=== PATIENT | female | born 1960 ===

== ENCOUNTER 2018-01-21 09:38 | Emergency (ER) | payer OTHER ==
--- NOTE | 2018-01-21 10:20 | C.PDOC ---
History Of Present Illness Patient c/o headache associated with elevated BP started from last night. Patient also c/p numbing sensation in the left 5th finger started this morning after sleep. Patient sts she recently had left wrist fracture. Patient denies chest pain/SOB/ Dizziness/nausea/vomiting/blurred vision. Patient is currently taking HCTZ 25 mg po QD for HTN. Time Seen by Provider: 01/21/18 09:55 Chief Complaint (Nursing): High Blood Pressure History Per: Patient History/Exam Limitations: no limitations Onset/Duration Of Symptoms: Other (from last night) Current Symptoms Are (Timing): Better Associated Symptoms: Headache Severity: Moderate Exacerbating Factor(s): Pos: None Past Medical History Reviewed: Historical Data, Nursing Documentation, Vital Signs Vital Signs: Last Vital Signs Temp 97.7 F 01/21/18 13:50 Pulse 80 01/21/18 13:50 Resp 20 01/21/18 13:50 BP 146/87 01/21/18 13:50 Pulse Ox 100 01/21/18 14:11 - Medical History PMH: Asthma, HTN Family History: States: Unknown Family Hx - Social History Hx Alcohol Use: No Hx Substance Use: No - Immunization History Hx Tetanus Toxoid Vaccination: No Hx Influenza Vaccination: No Hx Pneumococcal Vaccination: No Review Of Systems Except As Marked, All Systems Reviewed And Found Negative. Physical Exam - Physical Exam Appears: Well, Non-toxic, No Acute Distress Skin: Normal Color, Warm, Dry Head: Atraumatic, Normacephalic Eye(s): bilateral: Normal Inspection, PERRL, EOMI Neck: Normal ROM, No Midline Cervical Tenderness, No Paracervical Tenderness, Supple Chest: Symmetrical, No Tenderness Cardiovascular: Rhythm Regular, No Edema Respiratory: Normal Breath Sounds Gastrointestinal/Abdominal: Soft, No Tenderness Back: No Vertebral Tenderness, No Paraspinal Tenderness Extremity: Tenderness (mild tenderness of the left wrist, FROM in all fingers, no neuro-vascular deficit.), No Swelling Pulses: Left Radial: Normal Neurological/Psych: Oriented x3, Normal Speech, Normal Cognition, Normal Cranial Nerves, Normal Motor, Normal Sensation ED Course And Treatment - Laboratory Results Result Diagrams: 01/21/18 10:57 01/21/18 10:57 ECG Rhythm: Sinus Rhythm ECG Interpretation: No Acute Changes Interpretation Of ECG: Q in V2 Rate From EC O2 Sat by Pulse Oximetry: 100 - CT Scan/US Head CT Other Rad Studies (CT/US): Read By Radiologist, Radiology Report Reviewed CT/US Interpretation: Accession No. : [id number]. Patient Name / ID : ANKUSH POLK / [id number]. Exam Date : 01/21/2018 11:19:35 ( Approved ). Study Comment : Sex / Age : F / 58Y. Creator : Heriberto Rodriguez MD. Dictator : Heriberto Rodriguez MD. Carpet Inspector Finished : White Work Cleaner : Heriberto Rodriguez MD. Approver2 : Report Date : 01/21/2018 12:24:21. PROCEDURE : CT HEAD WITHOUT CONTRAST. HISTORY: headache, elevated BP. COMPARISON: None available. TECHNIQUE: Axial computed tomography images were obtained through the head/brain without intravenous contrast. Radiation dose: Total exam DLP = 809.91 mGy-cm. This CT exam was performed using one or more of the following dose reduction techniques: Automated exposure control, adjustment of the mA and/or kV according to patient size, and/or use of iterative reconstruction technique. FINDINGS: HEMORRHAGE: No intracranial hemorrhage. BRAIN: No mass effect or edema. No atrophy or chronic microvascular ischemic changes. VENTRICLES: Unremarkable. No hydrocephalus. CALVARIUM: Unremarkable. PARANASAL SINUSES: Unremarkable as visualized. No significant inflammatory changes. MASTOID AIR CELLS: Unremarkable as visualized. No inflammatory changes. OTHER FINDINGS: None. IMPRESSION: Normal CT of the Head. Progress Note: Plan: EKG, labs, CT head, Vasotec 2.5 mg IV. On re-evaluation patient feels better, BP went down, patient is pain free. No neuro deficit. patient is stable to be d/c home with PMD follow up. Disposition - Disposition Referrals: [facility] at [facility] [Outside] Disposition: HOME/ ROUTINE Disposition Time: 14:07 Condition: IMPROVED Additional Instructions: Follow up in Clinic within 1-2 days. Return to ED if feel worse. Prescriptions: Lisinopril [Zestril] 10 mg PO DAILY #30 tablet Instructions: High Blood Pressure (DC), Headache, Adult (DC) Forms: [employer] (Vietnamese) Print Language: MOHAWK - Clinical Impression Clinical Impression: Hypertension, Headache
[2018-01-21] MEDS ORDERED: Enalaprilat 2.5 MG/2 ML IV STA (10:44)
[2018-01-21] MEDS ORDERED: Enalaprilat 2.5 MG/2 ML ONE (10:50)
[2018-01-21 11:01] LABS: BASO % 0.8 % (0.0-2.0); EOS # 0.2 K/uL (0.0-0.7); EOS % 4.3 % (0.0-4.0); HEMOGLOBIN 12.6 g/dL (11.0-16.0); LYMPH # 1.8 K/uL (1.0-4.3); LYMPH % 41.4 % (20.0-40.0); MEAN CELL VOLUME 91.7 fL (81.0-99.0); MEAN CORPUSCULAR HEMOGLOBIN 30.4 pg (27.0-31.0); MEAN CORPUSCULAR HGB CONC 33.2 g/dL (33.0-37.0); MONO # 0.4 K/uL (0.0-0.8); MONO % 8.3 % (0.0-10.0); NEUT % 45.2 % (50.0-75.0); RBC 4.13 Mil/uL (3.80-5.20); WHITE BLOOD COUNT 4.4 K/uL (4.8-10.8)
[2018-01-21 11:13] LABS: SQUAMOUS EPITHIAL < 1 /hpf (0-5); URINE BILIRUBIN NEGATIVE (NEGATIVE); URINE BLOOD NEGATIVE (NEGATIVE); URINE CLARITY Clear (Clear); URINE COLOR Yellow (YELLOW); URINE GLUCOSE (UA) NORMAL (Normal); URINE LEUKOCYTE ESTERASE NEG Leu/uL (Negative); URINE PROTEIN NEGATIVE (NEGATIVE); URINE UROBILINOGEN NORMAL mg/dL (0.2-1.0)
[2018-01-21 11:26] LABS: ALB/GLOB RATIO 1.2 (1.0-2.1); ALBUMIN 4.4 g/dL (3.5-5.0); ALT/SGPT 28 U/L (9-52); AST/SGOT 27 U/L (14-36); BLOOD UREA NITROGEN 16 mg/dL (7-17); GFR AFRICAN-AMERICAN > 60; GFR NON-AFRICAN AMERICAN > 60
--- NOTE | 2018-01-21 12:25 | CT ---
PROCEDURE: CT HEAD WITHOUT CONTRAST. HISTORY: headache, elevated BP COMPARISON: None available. TECHNIQUE: Axial computed tomography images were obtained through the head/brain without intravenous contrast. Radiation dose: Total exam DLP = 809.91 mGy-cm. This CT exam was performed using one or more of the following dose reduction techniques: Automated exposure control, adjustment of the mA and/or kV according to patient size, and/or use of iterative reconstruction technique. FINDINGS: HEMORRHAGE: No intracranial hemorrhage. BRAIN: No mass effect or edema. No atrophy or chronic microvascular ischemic changes. VENTRICLES: Unremarkable. No hydrocephalus. CALVARIUM: Unremarkable. PARANASAL SINUSES: Unremarkable as visualized. No significant inflammatory changes. MASTOID AIR CELLS: Unremarkable as visualized. No inflammatory changes. OTHER FINDINGS: None. IMPRESSION: Normal CT of the Head.
[2018-01-21 13:51] VITALS: BP 146/87; PULSE 80; RESP 20; TEMP 97.7
[2018-01-21 14:10] VITALS: O2SAT 100
--- NOTE | 2018-01-22 12:08 | CARD ---
APPROVED REPORT EKG Measurement Heart [id number] <Conclusion> Normal sinus rhythm Septal infarct, age undetermined Abnormal ECG
== END 2018-01-21 14:52 | disposition home or self-care (01) ==
LOC: C.ER 09:38
DX: I10 Essential (primary) hypertension (principal); R51 Headache

== ENCOUNTER 2018-03-17 12:10 | Emergency (ER) | payer OTHER ==
[2018-03-17 12:25] VITALS: BMI 23.3
[2018-03-17 12:29] VITALS: BP 161/76; PULSE 86; RESP 20; TEMP 98.4; O2SAT 99
--- NOTE | 2018-03-17 12:52 | C.PDOC ---
History Of Present Illness 58 year old female presents to the ED requesting blood pressure med refill. She states she has not taken her medications for 2 days. She reports she has not been able to go to the pharmacy to get a refill because every time she comes back from work the pharmacy is closed. Patient denies any medical complaints. Denies headache, dizziness, chest pain, or sob. Time Seen by Provider: 03/17/18 12:32 Chief Complaint (Nursing): Medical Clearance History Per: Patient History/Exam Limitations: no limitations Past Medical History Reviewed: Historical Data, Nursing Documentation, Vital Signs Vital Signs: Last Vital Signs Temp 98.4 F 03/17/18 12:24 Pulse 86 03/17/18 12:24 Resp 20 03/17/18 12:24 BP 161/76 H 03/17/18 12:24 Pulse Ox 99 03/17/18 15:17 - Medical History PMH: Asthma, HTN Surgical History: No Surg Hx Family History: States: No Known Family Hx - Social History Hx Alcohol Use: No Hx Substance Use: No - Immunization History Hx Tetanus Toxoid Vaccination: No Hx Influenza Vaccination: No Hx Pneumococcal Vaccination: No Review Of Systems Except As Marked, All Systems Reviewed And Found Negative. Physical Exam - Physical Exam Appears: Non-toxic, No Acute Distress Skin: Normal Color, Warm, Dry Head: Atraumatic, Normacephalic Eye(s): bilateral: Normal Inspection, PERRL, EOMI Nose: Normal Oral Mucosa: Moist Neck: Normal ROM, Supple Chest: Symmetrical Cardiovascular: Rhythm Regular Respiratory: Normal Breath Sounds, No Accessory Muscle Use, No Rales, No Rhonchi , No Wheezing Extremity: Normal ROM Neurological/Psych: Oriented x3, Normal Speech Gait: Steady ED Course And Treatment O2 Sat by Pulse Oximetry: 99 (RA) Pulse Ox Interpretation: Normal Progress Note: Patients condition remained stable throughout Emergency Department evaluation. Previous medical records were requested and reviewed. Patient given Rx for Microzide and Zestril. Patient instructed to follow up with clinic . Clay Puddler used to ensure understanding. Disposition - Disposition Referrals: [facility] at [facility] [Outside] Disposition: HOME/ ROUTINE Disposition Time: 12:51 Condition: STABLE Additional Instructions: Vaya a vaz mdico o la clnica en 2-5 briones sin falta, para mas evaluacin. [place] los medicamentos froylan indicado. Volver a la snow de emergencia en cualquier momento si los sntomas persisten o empeoran. Prescriptions: Hydrochlorothiazide [Microzide] 12.5 mg PO DAILY #30 cap Lisinopril [Zestril] 10 mg PO DAILY #30 tablet Instructions: High Blood Pressure (DC) Forms: [employer] (Lithuanian) Print Language: MALDIVIAN - Clinical Impression Clinical Impression: Hypertension - PA / FORMS ANALYSIS MANAGER / Resident Statement MD/DO has reviewed & agrees with the documentation as recorded. - Scribe Statement The provider has reviewed the documentation as recorded by the Scribe Kristen Frederick All medical record entries made by the Selvinibtravis were at my direction and personally dictated by me. I have reviewed the chart and agree that the record accurately reflects my personal performance of the history, physical exam, medical decision making, and the department course for this patient. I have also personally directed, reviewed, and agree with the discharge instructions and disposition.
== END 2018-03-17 13:15 | disposition home or self-care (01) ==
LOC: C.ER 12:10
DX: I10 Essential (primary) hypertension (principal)

== ENCOUNTER 2018-03-24 15:57 | Emergency (ER) | payer OTHER ==
[2018-03-24 16:02] VITALS: BMI 22.6
[2018-03-24 16:04] VITALS: TEMP 98.8
--- NOTE | 2018-03-24 16:24 | C.PDOC ---
History Of Present Illness <Megan Landeros - Last Filed: 03/24/18 18:18> <Mary Corley - Last Filed: 03/24/18 20:12> 58 year old female presents to ED for evaluation of epigastric abdominal pain that started today, described as constant and localized. +nausea. No fever, diarrhea, chest pain, shortness of breath. PSH neg. Pt was seen on 03/17 sp HTN refill Hydrochlorothiazide 12.5mg PO daily. EPIG ABD PAIN X 1 DAY. CONSTANT LOCALIZED +NAUSE NO FEVER, DIARRHEA. PSH NEG. NO CP, SOB. SEEN 03/17 SP HTN MED REFILL Hydrochlorothiazide [Microzide] 12.5 mg PO DAILY #30 cap Lisinopril [Zestril] 10 mg PO DAILY #30 tablet EXAM MILD DIST NONTOXIC HEENT ANICTERIC MMM ABD +EPIG TEND MILD SOFT NO R/G REMAINDER NEG (Megan Landeros) History Per: Patient History/Exam Limitations: no limitations Onset/Duration Of Symptoms: Hrs Current Symptoms Are (Timing): Still Present Location Of Pain/Discomfort: Epigastric Radiation Of Pain To:: None Quality Of Discomfort: "Pain" Associated Symptoms: Nausea. denies: Fever, Vomiting, Diarrhea Recent travel outside of the [place]: No Additional History Per: Patient <Megan Landeros - Last Filed: 03/24/18 18:18> <Mary Corley - Last Filed: 03/24/18 20:12> Time Seen by Provider: 03/24/18 16:19 Chief Complaint (Nursing): Abdominal Pain Past Medical History Reviewed: Historical Data, Nursing Documentation, Vital Signs - Medical History PMH: Asthma, HTN Family History: States: Unknown Family Hx - Social History Hx Alcohol Use: No Hx Substance Use: No - Immunization History Hx Tetanus Toxoid Vaccination: No Hx Influenza Vaccination: No Hx Pneumococcal Vaccination: No <Megan Landeros - Last Filed: 03/24/18 18:18> Vital Signs: Last Vital Signs Temp 98.8 F 03/24/18 16:02 Pulse 67 03/24/18 18:50 Resp 18 03/24/18 18:50 BP 122/67 03/24/18 18:50 Pulse Ox 98 03/24/18 18:50 Review Of Systems Except As Marked, All Systems Reviewed And Found Negative. Constitutional: Negative for: Fever, Chills Cardiovascular: Negative for: Chest Pain Respiratory: Negative for: Shortness of Breath Gastrointestinal: Positive for: Nausea, Abdominal Pain. Negative for: Vomiting , Diarrhea Genitourinary: Negative for: Dysuria, Hematuria Musculoskeletal: Negative for: Back Pain <Megan Landeros - Last Filed: 03/24/18 18:18> Physical Exam - Physical Exam Appears: Non-toxic, Other (In mild distress) Skin: Normal Color, Warm, Dry Head: Atraumatic, Normacephalic Eye(s): bilateral: Normal Inspection, Other (anicteric) Nose: Normal Oral Mucosa: Moist Neck: Normal ROM, Supple Cardiovascular: Rhythm Regular, No Murmur Respiratory: Normal Breath Sounds, No Rales, No Rhonchi, No Wheezing Gastrointestinal/Abdominal: Soft, Tenderness (mild epigastric), No Guarding, No Rebound Back: No CVA Tenderness Extremity: Normal ROM Neurological/Psych: Oriented x3, Normal Speech <Megan Landeros Last Filed: 03/24/18 18:18> ED Course And Treatment - Laboratory Results Result Diagrams: 03/24/18 16:58 03/24/18 16:58 ECG: Interpreted By Ms, Viewed By Ms ECG Rhythm: Sinus Rhythm ECG Interpretation: No Acute Changes Rate From EC (bpm) O2 Sat by Pulse Oximetry: 100 (RA) Pulse Ox Interpretation: Normal - Radiology CXR: Interpreted by Ms CXR Interpretation: Yes: No Acute Disease <Megan Landeros - Last Filed: 03/24/18 18:18> - Laboratory Results Result Diagrams: 03/24/18 16:58 03/24/18 16:58 Lab Interpretation: No Acute Changes - CT Scan/US US Abd Other Rad Studies (CT/US): Read By Radiologist, Radiology Report Reviewed CT/US Interpretation: Name: JAM DE LUNA Age: 58Years F Date: . Requesting Physician: Megan Landeros : 1960. [employer] Procedure Ordered As Accession Number of Images. US ABDOMEN LTD US ABDOMEN LIMITED [id number]. Provided Clinical History: abd pain. EXAM: US Abdomen Limited, Right Upper Quadrant. CLINICAL HISTORY: 58 years old, female ; Pain; Abdominal pain; Generalized; Additional info: Abd pain. TECHNIQUE: Real-time ultrasound of the right upper quadrant with image documentation. COMPARISON: No relevant prior studies available. FINDINGS: Liver: Unremarkable. No mass. No intrahepatic bile duct dilation. Gallbladder: There is a non-mobile echogenic focus seen in the dependent surface of the gallbladder. without significant shadowing. this finding likely represents a gallbladder polyp. This finding measures 4 mm x 2 mm x 2.7 mm No. gallstones. Common bile duct: Unremarkable as visualized. No stones. No dilation. 2.4 mm. Pancreas: There is dilatation of pancreatic duct measuring 2.3 mm. Right kidney : Unremarkable. No stones. No solid mass. No hydronephrosis. RIGHT kidney measures 9.4 cm x 4.7 cm 4.7 cm. The abdominal aorta and IVC are unremarkable. IMPRESSION: 1. Small echogenic focus within the gallbladder possible polyp. 2. Pancreatic ductal dilatation. 3. Negative RIGHT kidney. 4.. Negative exam of the liver. Thank you for allowing us to participate in the care of your patient. Dictated and Authenticated by: Joon Mensah MD. 03/24/2018 7:55 PM Eastern Time ([place] & [place]) Reevaluation Time: 20:03 Reassessment Condition: Improved (but still having mild epigastric discomfort. Patient states that she took medication she has hat home for similar pain earlier this month and felt better.) <Mary Corley - Last Filed: 03/24/18 20:12> Progress - Data Reviewed Data Reviewed: Lab, Diagnostic imaging, EKG, Old records <Megan Landeros - Last Filed: 03/24/18 18:18> <Mary Corley - Last Filed: 03/24/18 20:12> - Re-Evaluation Re-evaluation Note: 03/24/18 18:16 CO RECUR ABD PAIN. PENDING US 03/24/18 18:[address] CORLEY FU US, REPORT, DISPO (Megan Landeros) Medical Decision Making <Megan Landeros - Last Filed: 03/24/18 18:18> <Mary Corley - Last Filed: 03/24/18 20:12> Medical Decision Making: Plan: Blood work Urinalysis CXR EKG Abdomen US Morphine, Pepcid, Zofran Reassess (Megan Landeros) Disposition Counseled Patient/Family Regarding: Studies Performed - Disposition Disposition Time: 18:18 <Megan Landeros - Last Filed: 03/24/18 18:18> - Disposition Disposition Time: 20:10 <Mary Corley - Last Filed: 03/24/18 20:12> - Disposition Referrals: [facility] at [facility] [Outside] Disposition: HOME/ ROUTINE Condition: STABLE Prescriptions: Dicyclomine [Bentyl] 20 mg PO QID PRN #20 tab PRN Reason: Pain, Severe (8-10) Instructions: Acute Abdomen (Belly Pain) Forms: [employer] (Chadian) Print Language: UPPER SORBIAN - Clinical Impression Clinical Impression: Abdominal pain - Scribe Statement The provider has reviewed the documentation as recorded by the Scribe <Megan Landeros - Last Filed: 03/24/18 18:18> <Mary Corley - Last Filed: 03/24/18 20:12> - Scribe Statement KP All medical record entries made by the Scribe were at my direction and personally dictated by me. I have reviewed the chart and agree that the record accurately reflects my personal performance of the history, physical exam, medical decision making, and the department course for this patient. I have also personally directed, reviewed, and agree with the discharge instructions and disposition. (Megan Landeros) Physician Patient Turnover Patient Signed Over To: Mary Corley Handoff Comments: JOHNNY LENZ, DISPO <Megan Landeros - Last Filed: 03/24/18 18:18>
[2018-03-24] MEDS ORDERED: Morphine 4 MG/ML VIAL ONE ×2 (16:48→18:21)
[2018-03-24 17:03] LABS: BASO % 0.7 % (0.0-2.0); EOS # 0.2 K/uL (0.0-0.7); EOS % 2.8 % (0.0-4.0); HEMOGLOBIN 11.7 g/dL (11.0-16.0); LYMPH # 2.8 K/uL (1.0-4.3); LYMPH % 39.9 % (20.0-40.0); MEAN CELL VOLUME 90.3 fL (81.0-99.0); MEAN CORPUSCULAR HEMOGLOBIN 29.1 pg (27.0-31.0); MEAN CORPUSCULAR HGB CONC 32.2 g/dL (33.0-37.0); MEAN PLATELET VOLUME 9.2 fL (7.2-11.7); MONO # 0.5 K/uL (0.0-0.8); MONO % 6.7 % (0.0-10.0); NEUT # 3.4 K/uL (1.8-7.0); NEUT % 49.9 % (50.0-75.0); NRBC % 0.1 % (0.0-2.0); RBC 4.03 Mil/uL (3.80-5.20); RED CELL DISTRIBUTION WIDTH 13.9 % (11.5-14.5)
[2018-03-24 17:05] LABS: SQUAMOUS EPITHIAL 1 /hpf (0-5); URINE BILIRUBIN NEGATIVE (NEGATIVE); URINE BLOOD NEGATIVE (NEGATIVE); URINE CLARITY Clear (Clear); URINE COLOR Colorless (YELLOW); URINE GLUCOSE (UA) NORMAL (Normal); URINE LEUKOCYTE ESTERASE NEG Leu/uL (Negative); URINE PROTEIN NEGATIVE (NEGATIVE); URINE UROBILINOGEN NORMAL mg/dL (0.2-1.0)
[2018-03-24 17:07] LABS: WHITE BLOOD COUNT 6.9 K/uL (4.8-10.8)
[2018-03-24 17:18] LABS: ALB/GLOB RATIO 1.3 (1.0-2.1); ALBUMIN 4.4 g/dL (3.5-5.0); ALT/SGPT 27 U/L (9-52); AST/SGOT 24 U/L (14-36); BLOOD UREA NITROGEN 15 mg/dL (7-17); CALCIUM 9.8 mg/dl (8.6-10.4); GFR AFRICAN-AMERICAN > 60; GFR NON-AFRICAN AMERICAN > 60; LIPASE 149 U/L (23-300)
--- NOTE | 2018-03-24 18:29 | RAD ---
Date of service: 03/24/2018 HISTORY: abd pain COMPARISON: No prior. TECHNIQUE: Chest PA and lateral FINDINGS: LUNGS: No active pulmonary disease. PLEURA: No significant pleural effusion identified. No pneumothorax apparent. CARDIOVASCULAR: Normal. OSSEOUS STRUCTURES: No significant abnormalities. VISUALIZED UPPER ABDOMEN: Normal. OTHER FINDINGS: None. IMPRESSION: No acute cardiopulmonary disease appreciated.
[2018-03-24 18:50] VITALS: BP 122/67; PULSE 67; RESP 18; O2SAT 98
--- NOTE | 2018-03-25 14:07 | US ---
Date of service: 03/24/2018 HISTORY: abd pain COMPARISON: None. TECHNIQUE: Sonographic evaluation of the right upper quadrant of the abdomen. FINDINGS: LIVER: Measures 13.2 cm in length. Normal echogenicity of the liver parenchyma. No mass. No intrahepatic bile duct dilatation. GALLBLADDER: The gallbladder is distended but thin walled. No clinically reported sonographic Villa sign. A 4 mm echogenic focus is seen in the dependent portion of gallbladder wall suggestive of a probable polyp with cholelithiasis not favored. No shadowing is related to this structure. No pericholecystic fluid collection either. COMMON BILE DUCT: Measures 2.4 mm. No stones. No dilatation. PANCREAS: Pancreatic duct is identified. No discrete mass or cyst seen related to the visualized pancreas. RIGHT KIDNEY: Measures 9.4 cm in length. Normal echogenicity. No calculus, mass, or hydronephrosis. AORTA: No aneurysmal dilatation. IVC: Unremarkable. OTHER FINDINGS: None . IMPRESSION: 1. 4 mm echogenic focus in the dependent gallbladder wall may reflect polyp. The gallbladder is otherwise nonfocal. 2. Remaining examination is unremarkable. Concordant preliminary report from [facility], 03/24/2018.
== END 2018-03-24 20:24 | disposition home or self-care (01) ==
LOC: C.ER 15:57
DX: R10.9 Unspecified abdominal pain (principal); I10 Essential (primary) hypertension
CPT/HCPCS: 71046; 76705; 80053; 81001; 83690; 84484; 85025; 96372; 96374; 96375; 96376; 99284; J0500; J2270; J2405

== ENCOUNTER 2018-08-06 18:44 | Emergency (ER) | payer OTHER ==
[2018-08-06 18:44] VITALS: BMI 22.6
[2018-08-06 18:54] VITALS: RESP 18
[2018-08-06 19:34] VITALS: BP 170/100; PULSE 90; TEMP 98
[2018-08-06 19:37] VITALS: O2SAT 100
--- NOTE | 2018-08-06 19:37 | C.PDOC ---
History Of Present Illness 58 year old female, whose past medical history includes hypertension, presents to the ED requesting refill of her medication. Patient was notified by her PMD that her medications need to be adjusted, but she has not yet followed up in office. Patient denies headache, vision change, or chest pain. Time Seen by Provider: 08/06/18 19:20 Chief Complaint (Nursing): Med Refill History Per: Patient History/Exam Limitations: no limitations Onset/Duration Of Symptoms: Hrs Current Symptoms Are (Timing): Still Present Additional History Per: Patient Past Medical History Reviewed: Historical Data, Nursing Documentation, Vital Signs Vital Signs: Last Vital Signs Temp 98.3 F 08/06/18 18:50 Pulse 97 H 08/06/18 18:50 Resp 18 08/06/18 18:50 BP 180/100 H 08/06/18 18:50 Pulse Ox 100 08/06/18 18:50 - Medical History PMH: Asthma, HTN Surgical History: No Surg Hx Family History: States: Unknown Family Hx - Social History Hx Alcohol Use: No Hx Substance Use: No - Immunization History Hx Tetanus Toxoid Vaccination: No Hx Influenza Vaccination: No Hx Pneumococcal Vaccination: No Review Of Systems Constitutional: Positive for: Other (hypertension medication refill ). Negative for: Fever, Chills Eyes: Negative for: Vision Change Cardiovascular: Negative for: Chest Pain Neurological: Negative for: Headache Physical Exam - Physical Exam Appears: Non-toxic, No Acute Distress Skin: Normal Color, Warm, Dry Head: Atraumatic, Normacephalic Eye(s): bilateral: Normal Inspection Neck: Supple Chest: Symmetrical, No Deformity Cardiovascular: Rhythm Regular Respiratory: Normal Breath Sounds, No Rales, No Rhonchi, No Wheezing Neurological/Psych: Oriented x3, Normal Speech, Normal Cognition ED Course And Treatment O2 Sat by Pulse Oximetry: 100 (on RA) Pulse Ox Interpretation: Normal Progress Note: On reassessment, patient is resting comfortably, showing no signs of distress and is stable for discharge. Patient will be given prescription medications and is advised to follow up with her PMD within 1-2 days for further evaluation. She is advised to return to the ED immediately if her symptoms persist or worsen. Disposition - Disposition Referrals: at [facility] [Outside] Disposition: HOME/ ROUTINE Disposition Time: 19:31 Condition: STABLE Additional Instructions: Es muy importante para seguir en clinica de medicina general en 1-2 diaz Sofie todos las medicinas Return to ER if worse Prescriptions: Hydrochlorothiazide [Microzide] 25 mg PO DAILY #14 cap Lisinopril [Zestril] 10 mg PO DAILY #10 tablet Naproxen [EC-Naprosyn] 375 mg PO TID #30 tablet. Instructions: High Blood Pressure (DC) Forms: [employer] (Kazakh) - Clinical Impression Clinical Impression: Review of medication, Encounter for medical assessment - PA / LUNCH COUNTER MANAGER / Resident Statement MD/DO has reviewed & agrees with the documentation as recorded. - Scribe Statement The provider has reviewed the documentation as recorded by the Scribe (Grazyna Fishman) All medical record entries made by the Scribe were at my direction and personally dictated by me. I have reviewed the chart and agree that the record accurately reflects my personal performance of the history, physical exam, medical decision making, and the department course for this patient. I have also personally directed, reviewed, and agree with the discharge instructions and disposition.
== END 2018-08-06 19:50 | disposition home or self-care (01) ==
LOC: C.ER 18:44
DX: Z76.0 Encounter for issue of repeat prescription (principal)

== ENCOUNTER 2018-12-12 11:08 | Outpatient (CLI) | payer OTHER | END 2018-12-12 11:09 | disposition home or self-care (01) | LOC: C.MAMMO 11:08 | DX: R92.8 Other abnormal and inconclusive findings on diagnostic imaging of breast (principal) ==